=== PATIENT | male | born 1980 | race Caucasian/White ===

== ENCOUNTER → 2023-07-14 17:55 | Outpatient (REF) | payer SELFPAY | LOC: RAD 17:55 | PROVIDERS: ATTENDING PHYSICIAN Emergency Medicine; FAMILY PHYSICIAN Family Medicine | DX: M70.71 Other bursitis of hip, right hip (principal); S30.0XXA Contusion of lower back and pelvis, initial encounter | CPT/HCPCS: 73502 ==

== ENCOUNTER 2023-09-08 17:20 | Emergency (ER) | payer OTHER, SELFPAY ==
[2023-09-08 18:26] VITALS: BP 162/98
[2023-09-08] MEDS: MOTRIN 400 MG PO (18:43)
--- NOTE | 2023-09-08 19:29 | ED.GENMED ---
History of Present Illness
General
Chief Complaint: Headache
Source: patient
Exam Limitations: none
Time Seen by Provider: 09/08/23 18:31
Nursing documentation reviewed up to this point in time: agreed with
Travel History
Have you had any contact with someone who has COVID-19?: No
Do you have any symptoms of coronavirus? Fever > 100 degrees, chills, cough, shortness of breath, sore throat, loss of taste or smell, muscle aches, or headache?: No
History of Present Illness
History of Present Illness:
Patient presents to ED secondary to persistent, intermittent diffuse headache, after hitting his forehead against the shelf in his food pantry 2 weeks ago. Patient states that his injury was 'minor'. His headache developed later that night.
Denies dizziness. Denies nausea or vomiting. Denies blurred vision. Denies loss of sensation or weakness. Denies difficulty with ambulation. Patient does have history of migraine headache, but has not had any migraine headache for some time.
Patient spoke with his primary care physician who advised patient come to ED for an evaluation, including CT head, and with his ongoing symptoms.
Past History
Past History
ED Past Medical History: HTN and Seizures
ED Past Surgical History: Other (tympanoplasty)
Social History
Tobacco: Former smoker
Alcohol: None
Personal: Single
Living: with family
Employment: Employed
Review of Systems
Review of Systems
Allergies reviewed?: Yes
All Other Systems: ROS reviewed and negative except as documented in HPI and ROS
Constitutional: Reports no symptoms
EENT: Reports no symptoms
Respiratory: Reports no symptoms
Cardiac: Reports no symptoms
ABD/GI: Reports no symptoms; Denies nausea or vomiting
Musculoskeletal: Reports no symptoms
Skin: Reports no symptoms
Neurological: Reports headache; Denies dizzy, weakness or numbness
Phy Exam
Physical Exam
Physical Exam:
Physical Exam
General: no apparent distress, not acutely ill. afebrile.
Head: nc/at. eomi. perrl
Neck: supple. normal range of motion.
Neuro: alert and oriented. no focal neurological deficits
Skin: no rash
Psychiatric: well kept. interactive and cooperative
Extremities: no edema. no calf tenderness.
Course
Orders/Labs/Results
Orders:
Orders
09/08/23 18:36
CT Head W/o Iv Contrast Urgent
Comment:
Reason For Exam: head injury
Ibuprofen [Motrin] 400 mg PO NOW STA
Vital Signs
Initial and Last Documented VS:
Initial Vital Signs
Temp Pulse Resp BP Pulse Ox
98.3 F 92 20 162/98 100
09/08/23 18:26 09/08/23 18:26 09/08/23 18:26 09/08/23 18:26 09/08/23 18:26
Last Documented Vital Signs
Temp Pulse Resp BP Pulse Ox
98.3 F 92 20 162/98 100
09/08/23 18:26 09/08/23 18:26 09/08/23 18:26 09/08/23 18:26 09/08/23 18:26
MDM/Problems Addressed
MDM/Problems Addressed:
CT head: NAD.
Patient with likely mild postconcussive symptoms. Otherwise, patient is afebrile, hemodynamically stable, and neurologically intact. Patient will be advised to take Tylenol/Motrin for symptomatic relief, along with PCP follow-up as an outpatient.
*Critical Care Note
Total Time (30-74mins, 75-104mins- exclusive of procedures): Not Applicable
ED Attending Note
-
Portions of this chart may have been created with voice recognition software.� Occasional wrong word or��sound alike� substitutions may have occurred due to the inherent limitations of voice recognition software.
Discharge Plan
Departure
Patient Disposition: Home (Routine Discharge)
Date of Disposition: 09/08/23
Time of Disposition: 20:02
Patient with high blood pressure during this ER visit?: Yes
Discharge Problem:
Headache
Instructions: Headache, Adult (DC)
Prescriptions:
No Action
cyclobenzaprine 10 MG tablet
5 mg PO PRN PRN (Reason: knee pain)
acetaminophen [Acetaminophen Extra Strength] 500 MG tablet
1,000 mg PO PRN PRN (Reason: pain)
carbamazepine 200 MG tablet
400 mg PO BID
omeprazole 20 MG capsule,delayed release(DR/EC)
20 mg PO BID
loratadine 10 MG tablet
10 mg PO DAILY
Ibuprofen
2 tab PO PRN PRN (Reason: jaw pain)
olmesartan [Benicar] 40 MG tablet
20 mg PO HS
oxycodone-acetaminophen [Percocet] 5-325 mg Tablet
1 tab PO Q6HPRN PRN (Reason: pain) Qty: 14 0RF
diclofenac potassium 50 mg tablet
50 mg PO BID PRN (Reason: pain) Qty: 14 0RF
metaxalone 800 mg tablet
800 mg PO TID PRN (Reason: muscle pain) Qty: 14 0RF
methylprednisolone [Medrol ([place])] 4 mg tablets,dose pack
4 mg PO DAILY Qty: 21 0RF
Referrals:
Jose Angel Garsia DO [Family Provider] -
Activity Restrictions/Additional Instructions:
As discussed, please follow up with your primary care physician for re-evaluation.
Interventions
Interventions:
*Risk Screen - Suicide Last Done: 09/08/23 18:26
*General Assessment Last Done: 09/08/23 18:26
*Neglect/Abuse Screening Last Done: 09/08/23 18:26
ED- Fall Risk Assessment Last Done: 09/08/23 18:47
*Nursing Disposition Last Done: 09/08/23 20:09
ED- Neurological Assessment Last Done: 09/08/23 18:46
Discharge Date and Time
Discharge Date/Time: 09/08/23 20:10
Print Language: WOLOF
== END 2023-09-08 20:10 | disposition home or self-care (01) ==
LOC: EMR 17:20
PROVIDERS: EMERGENCY PHYSICIAN Emergency Medicine; FAMILY PHYSICIAN Family Medicine
DX: R51.9 Headache, unspecified (principal); I10 Essential (primary) hypertension; Z87.891 Personal history of nicotine dependence
CPT/HCPCS: 99284; 70450

== ENCOUNTER 2023-11-03 10:03 | Emergency (ER) | payer SELFPAY ==
[2023-11-03 10:06] VITALS: BP 142/84
[2023-11-03 10:08] VITALS: BP 142/84
[2023-11-03 10:09] VITALS: BMI 40.0
[2023-11-03] MEDS: NSS 1000 IV (10:11)
[2023-11-03 10:25] LABS: % Basophils 0.3 % (0-2); % Eosinophils 0.6 % (0-6); % Immature Granulocytes 0.3 % (0-0.5); % Lymphocytes 22.3 % (20.5-51.1); % Monocytes 8.2 % (1.7-9.3); % Neutrophils 68.3 % (42.2-75.2); Absolute Lymphocytes 1.6 10^3/uL (1.2-3.4); Absolute Monocytes 0.6 10^3/uL (0.1-0.6); Absolute Neutrophils 4.8 10^3/uL (1.4-6.5); Hematocrit 41.1 % (39.0-52.0); Hemoglobin 14.5 g/dL (13.0-18.0); Mean Corp Hgb Conc. 35.3 g/dL (33.0-37.0); Mean Corpuscular Hgb 31.9 pg (27.0-31.0); Mean Corpuscular Volume 90.3 fL (80.0-94.0); Mean Platelet Volume 9.1 fL (7.4-10.4); Nucleated Red Blood Cells % 0 % (-); Platelet Count 302 10^3/uL (130-400); Red Blood Cell Count 4.55 10^6/uL (4.70-6.10); Red Cell Dist. Width 12.3 % (11.5-14.5)
[2023-11-03 10:35] LABS: ALT (SGPT) 20 U/L (0-50); AST (SGOT) 24 U/L (17-59); Albumin 4.6 g/dl (3.5-5.0); Alkaline Phosphatase 91 U/L (38-126); Blood Urea Nitrogen 23 mg/dl (9-20); Calcium 9.5 mg/dl (8.4-10.2); Carbon Dioxide 26 mmol/L (22-30); Chloride 105 mmol/L (98-107); Estimated Creatinine Clearance > 125 ml/min; Glucose 102 mg/dl (70-99); Sodium 139 mmol/L (135-145); Total Bilirubin 0.3 mg/dl (0.2-1.3); eGFR > 60.00
[2023-11-03 10:37] LABS: INR 1.05; PT 13.8 Sec (11.4-14.6)
[2023-11-03 10:47] LABS: Troponin I < 0.012 ng/ml
[2023-11-03 11:00] VITALS: BP 137/90
--- NOTE | 2023-11-03 11:08 | ED.GENMED ---
History of Present Illness
General
Chief Complaint: Chest Pain
Time Seen by Provider: 11/03/23 10:19
History of Present Illness
History of Present Illness:
43-year-old male presents to the emergency department via EMS for evaluation of acute onset of chest pain that occurred while working today. 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 Pain is
improved but not resolved. No fevers or chills.
Past History
Past History
ED Past Medical History: HTN and Seizures
ED Past Surgical History: Other (tympanoplasty)
Social History
Tobacco: Former smoker
Alcohol: None
Personal: Single
Living: with family
Employment: Employed
Review of Systems
Review of Systems
Allergies reviewed?: Yes
All Other Systems: ROS reviewed and negative except as documented in HPI and ROS
Phy Exam
Physical Exam
Physical Exam:
GEN: Well appearing, NAD, WDWN
Eyes: PERRLA, EOMs intact, no scleral icterus
HENT: NCAT, oral mucosa moist, no JVD, no cervical adenopathy.
Lungs: CTAB, no wheezes, rales, rhonchi, normal chest wall excursion
Cardiac: RRR, no M/R/G, no peripheral edema. Radial pulses 2+ bilat
Abdomen: S, NT, ND, NABS, no masses or hepatosplenomegaly
Neuro: AO x 3
MSK: No gross deformity or ecchymosis. No edema. No digital clubbing
Skin: No rashes, petechiae. Normal color, no pallor or jaundice.
Psych: Calm, cooperative, proper hygiene
Scores
Heart Score for Chest Pain Patients
STEMI patient?: No
History: Slightly or Non-Suspicious
ECG: Normal
Age: </= 45 years
Risk Factors: No Risk Factors
Troponin: </= Normal Limit
Heart Score for Chest Pain Patients: 0
Heart Score Risk: 2.5% MACE over next 6 weeks
Course
Orders/Labs/Results
Orders:
Orders
11/03/23 10:04
Electrocardiogram (*1) Urgent
Reason for Study: Chest Pain
EKG- Treatment ONCE
IV Insert/Care/Rem.- Treatment PRN
11/03/23 10:10
Complete Blood Count/With Diff Urgent
Comprehensive Metabolic Panel Urgent
Prothrombin Time Urgent
Troponin I Urgent
11/03/23 10:11
0.9% Sodium Chloride 1000 ml [Nss] 1,000 ml IV BOLUS
11/03/23 10:32
CR Chest - 2 Views Urgent
Comment:
Reason For Exam: chest pain/SOB
11/03/23 11:47
EKG [Electrocardiogram (*1)] Routine
Reason for Study: Chest Pain
EKG- Treatment ONCE
Ketorolac [Toradol] 15 mg IV NOW STA
11/03/23 12:11
Troponin I Routine
Abnormal Lab Results
11/03/23
10:10
RBC 4.55 L 10^6/uL
(4.70-6.10)
MCH 31.9 H pg
(27.0-31.0)
BUN 23 H mg/dl
(9-20)
Glucose 102 H mg/dl
(70-99)
11/03/23 10:10
11/03/23 10:10
Vital Signs
Initial and Last Documented VS:
Initial Vital Signs
BP
142/84
11/03/23 10:06
Last Documented Vital Signs
Temp Pulse Resp BP Pulse Ox
97.8 F 73 18 143/94 95
11/03/23 10:08 11/03/23 13:15 11/03/23 13:15 11/03/23 13:00 11/03/23 13:15
MDM/Problems Addressed
MDM/Problems Addressed:
43-year-old male presents with acute chest pain that occurred while exerting himself in a hot environment. EKG is nonischemic and initial and delta troponins are negative. Labs are reassuring and chest x-ray shows no abnormalities.
Comment
Comment:
EKG independently interpreted by me shows normal sinus rhythm at a rate of [address] changes concerning for ischemia
*Critical Care Note
Total Time (30-74mins, 75-104mins- exclusive of procedures): Not Applicable
ED Attending Note
-
Portions of this chart may have been created with voice recognition software.� Occasional wrong word or��sound alike� substitutions may have occurred due to the inherent limitations of voice recognition software.
Discharge Plan
Departure
Patient Disposition: Home (Routine Discharge)
Date of Disposition: 11/03/23
Time of Disposition: 13:23
Patient with high blood pressure during this ER visit?: No
Discharge Problem:
Atypical chest pain
Instructions: Chest Pain That Is Not Caused by the Heart (DC)
Prescriptions:
No Action
cyclobenzaprine 10 MG tablet
5 mg PO PRN PRN (Reason: knee pain)
acetaminophen [Acetaminophen Extra Strength] 500 MG tablet
1,000 mg PO PRN PRN (Reason: pain)
carbamazepine 200 MG tablet
400 mg PO BID
omeprazole 20 MG capsule,delayed release(DR/EC)
20 mg PO BID
loratadine 10 MG tablet
10 mg PO DAILY
Ibuprofen
2 tab PO PRN PRN (Reason: jaw pain)
olmesartan [Benicar] 40 MG tablet
20 mg PO HS
oxycodone-acetaminophen [Percocet] 5-325 mg Tablet
1 tab PO Q6HPRN PRN (Reason: pain) Qty: 14 0RF
diclofenac potassium 50 mg tablet
50 mg PO BID PRN (Reason: pain) Qty: 14 0RF
metaxalone 800 mg tablet
800 mg PO TID PRN (Reason: muscle pain) Qty: 14 0RF
methylprednisolone [Medrol ([place])] 4 mg tablets,dose pack
4 mg PO DAILY Qty: 21 0RF
Referrals:
Odilia Garza, [Family Provider] -
Interventions
Interventions:
*Risk Screen - Suicide Last Done: 11/03/23 10:07
*General Assessment Last Done: 11/03/23 10:07
*Neglect/Abuse Screening Last Done: 11/03/23 10:07
*ED COVID-19 Vaccine History Last Done: 11/03/23 10:07
*Nursing Disposition Last Done: 11/03/23 13:32
ED- Cardiac Assessment Last Done: 11/03/23 10:08
Discharge Date and Time
Discharge Date/Time: 11/03/23 14:22
Print Language: OMANI
[2023-11-03 12:00] VITALS: BP 141/100
[2023-11-03] MEDS: TORADOL 15 MG IV (12:12)
[2023-11-03 13:00] VITALS: BP 143/94
[2023-11-03 13:00] LABS: Troponin I < 0.012 ng/ml
== END 2023-11-03 14:22 | disposition home or self-care (01) ==
LOC: EMR 10:03
PROVIDERS: Physician Assistant; EMERGENCY PHYSICIAN Emergency Medicine; FAMILY PHYSICIAN Family Medicine
DX: R07.89 Other chest pain (principal); Z87.891 Personal history of nicotine dependence
CPT/HCPCS: 99285; 96374; 96361; 71046; 80053; 84484; 85025; 85610; 93005

== ENCOUNTER 2024-06-11 18:45 | Emergency (ER) | payer OTHER, SELFPAY ==
[2024-06-11 18:47] VITALS: BP 142/97
[2024-06-11] MEDS: TYLENOL 1000 MG PO (21:39)
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
[2024-06-11 21:41] VITALS: BMI 33.2
[2024-06-11 22:51] VITALS: BP 147/96
[2024-06-11 23:40] VITALS: BP 131/85
== END 2024-06-11 23:40 | disposition home or self-care (01) ==
LOC: EMR 18:45
PROVIDERS: EMERGENCY PHYSICIAN Student in an Organized Health Care Education/Training Program; FAMILY PHYSICIAN Family Medicine
DX: M54.6 Pain in thoracic spine (principal); M54.2 Cervicalgia; V49.40XA Driver injured in collision with unspecified motor vehicles in traffic accident, initial encounter; Y92.410 Unspecified street and highway as the place of occurrence of the external cause; I10 Essential (primary) hypertension; Z87.891 Personal history of nicotine dependence
CPT/HCPCS: 99284; 70450; 71250; 72125

== ENCOUNTER 2025-03-13 19:40 | Emergency (ER) | payer SELFPAY ==
[2025-03-13 19:45] VITALS: BP 144/101
[2025-03-13 20:04] LABS: Hematocrit 47.1 % (39.0-52.0); Hemoglobin 16.5 g/dL (13.0-18.0); Mean Corp Hgb Conc. 35.0 g/dL (33.0-37.0); Mean Corpuscular Volume 91.3 fL (80.0-94.0); Nucleated Red Blood Cells % 0 % (-); Platelet Count 303 10^3/uL (130-400); Red Cell Dist. Width 12.4 % (11.5-14.5)
[2025-03-13 20:21] LABS: ALT (SGPT) 25 U/L (0-50); AST (SGOT) 25 U/L (17-59); Albumin 5.1 g/dl (3.5-5.0); Alkaline Phosphatase 76 U/L (38-126); Blood Urea Nitrogen 16 mg/dl (9-20); Calcium 9.9 mg/dl (8.4-10.2); Carbon Dioxide 28 mmol/L (22-30); Chloride 99 mmol/L (98-107); Glucose 116 mg/dl (70-99); Potassium 4.2 mmol/L (3.5-5.1); Sodium 136 mmol/L (135-145); Total Protein 8.1 g/dl (6.3-8.2); eGFR > 60.00
[2025-03-13 23:02] VITALS: BP 135/92
[2025-03-13 23:17] VITALS: BMI 36.5
[2025-03-14] VITALS: BP 125/92
[2025-03-14 00:20] LABS: Troponin I 0.030 ng/ml
[2025-03-14 00:52] LABS: D-Dimer 0.46 ug/mlFEU (0.00-0.50)
[2025-03-14] MEDS: NSS 1000 IV (00:58)
[2025-03-14 01:00] VITALS: BP 132/90
--- NOTE | 2025-03-14 01:02 | ED.GENMED ---
History of Present Illness
General
Chief Complaint: Heart Rate Problem
Source: patient
Time Seen by Provider: 03/14/25 00:22
Nursing documentation reviewed up to this point in time: agreed with
History of Present Illness
History of Present Illness:
Note:
CHIEF COMPLAINT(S)
Rapid heartbeat.
HISTORY OF PRESENT ILLNESS
The patient is a 44-year-old male who presented with episodes of rapid heartbeat. He described the sensation as similar to an asthma attack, noting chest tightness. The first episode occurred around 4:00 PM while at work, which resolved briefly but
recurred after dinner at home. At home, the patient used a blood pressure monitor and recorded heart rates of 120 beats per minute initially, with a subsequent reading of 103 beats per minute two minutes later, which indicated sinus tachycardia.
However, upon presentation, his heart rate was noted to be 94 beats per minute. The patient was previously evaluated for similar symptoms in October, and current findings were consistent with those, apart from the increased rate. He has not experienced
any recent travel, calf tenderness, or immobilization. The patient recently started working a desk job, which involves minimal physical activity, and mentioned practicing intermittent fasting.
SOCIAL DETERMINANTS AFFECTING HEALTH
The patient reported a recent job change, leading to a more sedentary lifestyle.
SOCIAL HISTORY
The patient quit smoking at age 23. He consumes coffee in the morning and adheres to a schedule of intermittent fasting, eating between 2:30 PM and 8:00 PM, with only water intake outside these times.
MEDICATIONS
- Omeprazole 10 mg or 5 mg daily
- Diclofenac patch (suspected Lidocaine)
REVIEW OF SYSTEMS
- Cardiovascular: Episodes of rapid heartbeat and chest tightness.
- Respiratory: No recent asthma attacks or respiratory distress reported.
- General: No recent fever or illness.
PHYSICAL EXAM
General: Alert, no acute distress.
Skin: Warm, dry.
Head: Normocephalic, atraumatic.
Neck: Supple, trachea midline.
Eye Ears, nose, mouth and throat: Oral mucosa moist.
Cardiovascular: Normal peripheral perfusion, No edema.
Respiratory: Respirations are non-labored.
Gastrointestinal: Abdomen nondistended.
Back: Normal range of motion, Normal alignment.
Musculoskeletal: Normal ROM, normal strength.
Neurological: Alert and oriented to person, place, time, and situation, No focal neurological deficit observed.
Psychiatric: Cooperative, appropriate mood & affect.
PROBLEM LIST
Acute Problems: Tachycardia, chest tightness.
Chronic Problems: History of gastroesophageal reflux disease managed with medication.
PLAN
1. Repeat cardiac enzyme test in a few hours to evaluate any changes.
2. Perform a blood clot test. If positive, conduct a further diagnostic evaluation (imaging).
3. Administer a liter of IV fluids due to slight dehydration.
4. Reassess after the diagnostic results are available.
DIFFERENTIAL DIAGNOSIS
The Differential Diagnosis includes, in no particular order and is not limited to:
1. Sinus tachycardia
2. Atrial fibrillation
3. Pulmonary embolism
4. Hyperthyroidism
5. Anxiety
6. Cardiac arrhythmia
7. Myocardial infarction
8. Dehydration
9. Panic attack
10. Caffeine-induced tachycardia
Disposition:
SUMMARY OF ENCOUNTER
The patient, a 44-year-old male, presented to the emergency department with complaints of chest pain and palpitations. Initial evaluation included a CT angiography of the chest which did not reveal any acute pathology. Troponin levels were negative,
suggesting no acute coronary syndrome. The patient did not experience further chest pain while in the emergency department.
DISPOSITION
Discharge to follow-up with cardiology.
PLAN
Discharge with instructions to follow up with cardiology and utilize the chest pain referral hotline initiated for further evaluation and management as needed.
MEDICAL DECISION MAKING
-Complexity of Data Reviewed: Chronic conditions affecting care include history of gastroesophageal reflux disease and symptoms of tachycardia. Differential diagnosis considered included sinus tachycardia, atrial fibrillation, pulmonary embolism,
hyperthyroidism, anxiety, cardiac arrhythmia, myocardial infarction, dehydration, panic attack, and caffeine-induced tachycardia.
-Data:
Category 1: CT angiography of the chest was independently reviewed, confirming no acute findings suggestive of a pulmonary embolism or other significant pathology.
Category 3: Discussion of management involved determining the need for follow-up with cardiology for further evaluation of cardiac symptoms.
DIAGNOSIS
1. Palpitations (R00.2)
2. Chest pain, unspecified (R07.9)
Past History
Past History
ED Past Medical History: HTN and Seizures
ED Past Surgical History: Other (tympanoplasty)
Social History
Tobacco: Former smoker
Alcohol: None
Personal: Single
Living: with family
Employment: Employed
Phy Exam
Physical Exam
Physical Exam:
.
Course
Orders/Labs/Results
Orders:
Orders
03/13/25 19:49
Electrocardiogram (*1) Urgent
Reason for Study: Tachycardia
EKG- Treatment ONCE
03/13/25 19:57
CMP [Comprehensive Metabolic Panel] Urgent
Complete Blood Count/With Diff Urgent
03/13/25 23:24
Troponin I Urgent
03/14/25 00:22
Add On- LAB Urgent
Tests Added?: tsh
03/14/25 00:27
D-Dimer Urgent
03/14/25 00:46
Electrocardiogram (*1) Urgent
Reason for Study: Chest Pain
EKG- Treatment ONCE
03/14/25 00:57
0.9% Sodium Chloride 1000 ml [Nss] 1,000 ml IV BOLUS
03/14/25 03:18
Troponin I Urgent
03/14/25 05:04
CT Chest PE Study Urgent
Comment:
Reason For Exam: cp, tachy, dyspnea
03/14/25 05:08
Troponin I Urgent
Abnormal Lab Results
03/13/25
19:57
MCH 32.0 H pg
(27.0-31.0)
Absolute Monos (auto) 0.7 H 10^3/uL
(0.1-0.6)
Glucose 116 H mg/dl
(70-99)
Albumin 5.1 H g/dl
(3.5-5.0)
03/13/25 19:57
03/13/25 19:57
Vital Signs
Initial and Last Documented VS:
Initial Vital Signs
Temp Pulse Resp BP Pulse Ox
98.2 F 117 20 144/101 97
03/13/25 19:45 03/13/25 19:45 03/13/25 19:45 03/13/25 19:45 03/13/25 19:45
Last Documented Vital Signs
Temp Pulse Resp BP Pulse Ox
98.3 F 70 18 140/92 100
03/14/25 05:34 03/14/25 05:34 03/14/25 05:34 03/14/25 04:00 03/14/25 05:34
*Radiology
Radiology exam reviewed: radiology read reviewed
*Pulse Oximetry
SaO2: 96
Oxygen Mode of Delivery: Room air
Patient hypoxic: no
*Critical Care Note
Total Time (30-74mins, 75-104mins- exclusive of procedures): Not Applicable
ED Attending Note
-
Portions of this chart may have been created with voice recognition software.� Occasional wrong word or��sound alike� substitutions may have occurred due to the inherent limitations of voice recognition software.
Discharge Plan
Departure
Patient Disposition: Home (Routine Discharge)
Date of Disposition: 03/14/25
Time of Disposition: 06:03
Patient with high blood pressure during this ER visit?: Yes
Condition: Fair
Discharge Problem:
Chest pain, Palpitations
Instructions: Palpitations (DC), Chest Pain CBC Follow Up, BLOOD PRESSURE
Prescriptions:
No Action
cyclobenzaprine 10 MG tablet
5 mg PO PRN PRN (Reason: knee pain)
acetaminophen [Acetaminophen Extra Strength] 500 MG tablet
1,000 mg PO PRN PRN (Reason: pain)
carbamazepine 200 MG tablet
400 mg PO BID
omeprazole 20 MG capsule,delayed release(DR/EC)
20 mg PO BID
loratadine 10 MG tablet
10 mg PO DAILY
Ibuprofen
2 tab PO PRN PRN (Reason: jaw pain)
olmesartan [Benicar] 40 MG tablet
20 mg PO HS
oxycodone-acetaminophen [Percocet] 5-325 mg Tablet
1 tab PO Q6HPRN PRN (Reason: pain) Qty: 14 0RF
diclofenac potassium 50 mg tablet
50 mg PO BID PRN (Reason: pain) Qty: 14 0RF
metaxalone 800 mg tablet
800 mg PO TID PRN (Reason: muscle pain) Qty: 14 0RF
methylprednisolone [Medrol ([place])] 4 mg tablets,dose pack
4 mg PO DAILY Qty: 21 0RF
Referrals:
UNKNOWN - PT DOES,NOT KNOW [Family Provider]
Stand Alone Forms: Return to Work
Interventions
Interventions:
*Risk Screen - Suicide Last Done: 03/13/25 19:45
*General Assessment Last Done: 03/13/25 19:45
*Neglect/Abuse Screening Last Done: 03/13/25 23:09
*ED- Fall Risk Assessment Last Done: 03/13/25 23:09
*ED COVID-19 Vaccine History Last Done: 03/13/25 23:09
*ED Influenza Vaccine History Last Done: 03/13/25 23:09
*Nursing Disposition Last Done: 03/14/25 06:24
ED- Cardiac Assessment Last Done: 03/13/25 23:10
ED- Pulmonary Assessment Last Done: 03/13/25 23:10
Discharge Date and Time
Discharge Date/Time: 03/14/25 06:25
Print Language: FRENCH
[2025-03-14 02:01] VITALS: BP 129/91
[2025-03-14 03:00] VITALS: BP 128/88
--- NOTE | 2025-03-14 03:08 | DOWNTIME ---
There was a [employer] Downtime on 03/14/2025 from 0100 to 03/14/2025 at 0255. Downtime documentation of patient's care, including medication administrations, has been reconciled in the electronic record per guidelines. Refer to the
patient's paper chart under the miscellaneous tab to see printed paper medication records and downtime forms.
[2025-03-14 04:00] VITALS: BP 140/92
[2025-03-14 04:06] LABS: Troponin I 0.031 ng/ml
[2025-03-14 05:58] LABS: Troponin I 0.019 ng/ml
== END 2025-03-14 06:25 | disposition home or self-care (01) ==
LOC: EMR 19:40
PROVIDERS: Emergency Medicine; EMERGENCY PHYSICIAN Student in an Organized Health Care Education/Training Program
DX: R07.9 Chest pain, unspecified (principal); R00.2 Palpitations; E86.0 Dehydration; I10 Essential (primary) hypertension; K21.9 Gastro-esophageal reflux disease without esophagitis; Z87.891 Personal history of nicotine dependence
CPT/HCPCS: 99284; 96360; 71275; 80053; 84484; 85025; 85379; 93005; Q9967